=== PATIENT | male | born 1955 | race Caucasian/White ===

== ENCOUNTER 2021-11-11 08:20 | Outpatient (CLI) | payer OTHER, SELFPAY ==
--- NOTE | 2021-11-11 08:36 | CT_ITS ---
WS: [id number] CT abdomen pelvis w con* [id number] REASON FOR EXAM: ABD PAIN IV CONTRAST ADMINISTERED: 95 mL of Omnipaque 300 TOTAL EXAM DLP: 1448.[address] scans at [facility] use at least one of these dose optimization techniques: automat ed exposure control; mA and/or kV adjustment per patient size (includes targeted exams where dose is matched to clinical indication); or iterative reconstruction. FINDINGS: ABDOMEN: Right diaphragmatic hernia (posterior, medial) right lobe of liver, gallbladder, and interposed right colon. Atelectasis in adjacent lung. No focal liver lesion. Spleen, pancreas, and gallbladder are unremarkable. Adrenals are within normal limits. Sub 3 mm cysts in both kidneys and 1.2 cm cyst in the upper pole o f the right kidney. No abdominal mass or adenopathy. No focal fluid collection or free fluid. Diverticulosis without evidence of diverticulitis. Normal appendix. Degenerative spondylosis in the lumbar spine without focal bone lesion. PELVIS: No mass or adenopathy. Normal urinary bladder. Enlargement of the prostate with hypertrophy of the median lobe. Small bilateral hydroceles more prominent on the left. No focal bone abnormality of the pelvis. CT/CT abdomen pelvis w con* [id number] IMPRESSION: Right diaphragmatic hernia as above.
[2021-11-11] MEDS: iohexol 300 mg/mL 100 mL Btl IV (09:46)
== END 2021-11-11 08:21 | disposition home or self-care (01) ==
PROVIDERS: PCP Family Medicine; Visit Provider Family Medicine
DX: R10.9 Unspecified abdominal pain (principal); K44.9 Diaphragmatic hernia without obstruction or gangrene
CPT/HCPCS: 74177

== ENCOUNTER 2024-07-10 09:55 | Emergency (ER) | payer OTHER, SELFPAY ==
--- NOTE | 2024-07-10 10:00 | XR_ITS ---
WS: [id number] Right shoulder, 4 views, 07/10/2024 Clinical Data: injury Comparison: None. Findings: No fractures or dislocations are seen. The AC joint is normal. The adjacent right clavicle, right sca pula and ribs are normal. The soft tissues are unremarkable. XR/XR shoulder RT min 2V* [id number] Impression: Negative right shoulder.
[2024-07-10 10:12] VITALS: BP 144/88; PULSE 63; RESP 16; TEMP 36.6; O2SAT 98; BMI 28.1
--- NOTE | 2024-07-10 10:24 | ED_ITS ---
HPI - Extremity Problem General: Chief complaint: Extremity Injury, Upper Stated complaint: rt shoulder inj Time Seen by Provider: 07/10/24 10:00 Source: patient Mode of arrival: ambulatory Limitations: no limitations History of Present Illness: 68-year-old male he states he developed a trailer last night he states he did hit his right shoulder has been having right shoulder pain since and he rates his pain a 6 out of 10 states it is painful to move. Denies any other injuries denies hitting his head denies any loss of consciousness. Associated symptoms: Deny chest pain, fever(s) or rash Related Data Home Medications Medication Instructions Recorded Confirmed aspirin 81 mg tablet,delayed 81 mg PO DAILY 07/10/24 07/10/24 release metoprolol succinate 25 mg 12.5 mg PO DAILY 07/10/24 07/10/24 tablet,extended release 24 hr Previous Rx's Medication Instructions Recorded hydrocodone 5 mg-acetaminophen 325 1 tab PO Q6H PRN pain #14 tabs 07/10/24 mg tablet Allergies Allergy/AdvReac Type Severity Reaction Status Date / Time No Known Allergies Allergy Verified 07/10/24 10:18 Review of Systems Const: Denies: fever(s), chills, body aches or change in appetite ENMT: Denies: throat pain or dental pain Card: Denies: chest pain Resp: Denies: dyspnea GI: Denies: abdominal pain, nausea, vomiting or diarrhea Musc: Reports: extremity pain; Denies: neck pain or back pain Skin/Breast: Denies: rash Neuro: Denies: headache(s) Physical Exam Const: COMMON NORMALS: no acute distress, patient oriented x3 and healthy appearing HENMT: COMMON NORMALS: normocephalic and atraumatic HEAD & SCALP: normocephalic and atraumatic Neck/C-Spine: COMMON NORMALS: full ROM and supple Chest: COMMONS NORMALS: normal inspection of the chest Resp: COMMON NORMALS: normal respiratory effort Cardio: COMMON NORMALS: regular rate, regular rhythm and No murmurs present (Cardio) RATE: regular rate RHYTHM: regular rhythm Extremity: NARRATIVE EXTREMITY EXAM: Tenderness noted over right shoulder does have pain with range of motion Neuro: COMMON NORMALS: patient oriented x3, moves all extremities and no focal motor deficits Psych: COMMON NORMALS: mental status grossly normal, Normal thought process present and cooperative THOUGHT PROCESS: Normal thought process present Skin: COMMON NORMALS: no rashes or lesions noted and no wounds GENERAL SKIN EXAM: no rashes or lesions noted Course Vital Signs: Vital signs: Vital Signs Temperature 97.8 F 07/10/24 10:12 Pulse Rate 62 07/10/24 10:32 Respiratory Rate 16 07/10/24 10:12 Blood Pressure 136/89 07/10/24 10:32 Pulse Oximetry 94 07/10/24 10:32 Oxygen Delivery Me thod Room Air 07/10/24 10:32 MDM - Extremity (Nontraumatic) Medical Decision Making Patient presents with a right shoulder sprain x-ray here is negative CT of his neck is negative we will place him in a sling will get him follow-up with orthopedics return if worsening or no other signs of injuries he understands a grees to plan Medical Records I reviewed the patient's medical records. Lab Data Radiology Impressions Shoulder X-Ray 07/10/24 10:00 Impression: Negative right shoulder. Cervical Spine CT 07/10/24 10:25 IMPRESSION: 1. No acute cervical spine fracture. 2. Facet joint arthropathy. 3. C7 anterolisthesis by 3.7 mm. 4. C6-7: Moderate central with bilateral foraminal stenosis, LEFT greater than RIGHT. 5. Bilateral foraminal stenosis at C7-T1, LEFT greater than RIGHT. 6. C5-6: Mild central with moderate bilateral foraminal stenosis, RIGHT greater than LEFT. All radiology interpretation(s) finalized by discharge Discharge Plan Discharge Patient Disposition: Home Clinical Impression: Sprain of right shoulder Qualifiers: Encounter type: initial encounter Shoulder sprain type: unspecified sprain Qualified Code(s): S43.401A - Unspecified sprain of right shoulder joint, initial encounter Condition: Stable Prescriptions: New hydrocodone-acetaminophen 5-325 mg tablet 1 tab PO Q6H PRN (Reason: pain) Qty: 14 0RF No Action aspirin [Aspir-81] 81 mg Tablet,Delayed Release (Dr/Ec) 81 mg PO DAILY metoprolol succinate 25 mg Tablet Extended Release 24 Hr 12.5 mg PO DAILY Rx Instructions: take 1/2 tablet by mouth once daily Discharge Orders: Discharge ED (Routine); Ordered 07/10/24 Ordered By: Rossy Enrique Referrals: Kareen Muir MD [Physician] - 1-3 days Kuzas,Silke, MD [Primary Care Provider] - Discharge Diet: Advance as tolerated Discharge Activity: Resume usual activity Patient Instructions: Shoulder Sprain (ED) Coding Level of Care Code ED 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
--- NOTE | 2024-07-10 10:25 | CT_ITS ---
WS: [id number] CT CERVICAL SPINE HISTORY: fall TECHNIQUE: Contiguous 2.0 mm axial imaging performed through the entire cervical spine. Sagittal and coronal reformats also performed. All CT scans at [facility] use at least one of these dose o ptimization techniques: automated exposure control; mA and/or kV adjustment per patient size (include s targeted exams where dose is matched to clinical indication); or iterative reconstruction. DLP: 162.67 mGy.cm COMPARISON: None available. C7 anterolisthesis by 3.7 mm. 2 mm retrolisthesis of C4. No acute cervical spine fractures identified . Facet joints are narrowed. Craniocervical junction is normal. Lateral masses of C1 and C2 are align ed. The odontoid is intact. C2-C3: Normal. C3-C4: Mild facet arthritis. C4-C5: Facet arthritis and foraminal osteophytes. Mild central and bilateral foraminal stenosis. C5-C6: Osteophytic ridging encroaching upon the ventral thecal sac. Mild central with moderate bilate ral foraminal stenosis, RIGHT greater than LEFT. C6-C7: Osteophytic ridging greatest to the LEFT. Encroaching upon the cervical cord and foramen. Mode rate central with bilateral foraminal stenosis, LEFT greater than RIGHT. C7-T1: Bilateral foraminal narrowing, LEFT greater than RIGHT due to osteophytes and facet disease. Lung apices are clear. CT/CT cervical spin wo con* [id number] IMPRESSION: 1. No acute cervical spine fracture. 2. Facet joint arthropathy. 3. C7 anterolisthesis by 3.7 mm. 4. C6-7: Moderate central with bilateral foraminal stenosis, LEFT greater than RIGHT. 5. Bilateral foraminal stenosis at C7-T1, LEFT greater than RIGHT. 6. C5-6: Mild central with moderate bilateral foraminal stenosis, RIGHT greate r than LEFT.
[2024-07-10 10:32] VITALS: BP 136/89; PULSE 62; O2SAT 94
[2024-07-10 11:36] VITALS: BP 132/83; PULSE 60; O2SAT 93
--- NOTE | 2024-07-11 11:28 | DCPLANNER ---
messaged ortho for er f/u
== END 2024-07-10 11:35 | disposition home or self-care (01) ==
PROVIDERS: Emergency Provider Emergency Medicine; PCP Family Medicine
DX: S43.401A Unspecified sprain of right shoulder joint, initial encounter (principal); X58.XXXA Exposure to other specified factors, initial encounter
CPT/HCPCS: 72125; 73030; 99284